=== PATIENT | female | born 1950 | race Caucasian/White ===

== ENCOUNTER 2016-10-19 13:04 | Day surgery (SDC) | payer OTHER ==
[~2016-10-19] VITALS: Ht 160 cm; Wt 58.5 kg
[~2016-10-19 13:04] MED LIST: ADULT LOW DOSE81 M1 PO; AMIODARONE HCL200 MG PO; DOXYCYCLINE HY100 MG PO; ELIQUIS5 MG PO; ESSENTIAL DAIL1 EACH PO; FISH OIL 1,0001 EAC7 PO; HYCODAN SYRUP480 ML PO; LASIX80 MG PO; VITAMIN D31000 UNIT PO
== END 2016-10-19 15:10 | disposition home or self-care (01) ==
LOC: CATH 13:04
PROC: 5A2204Z Restoration of Cardiac Rhythm, Single (ICD-10-PCS; principal; 2016-10-19)
DX: I48.91 Unspecified atrial fibrillation (principal); Z95.2 Presence of prosthetic heart valve; Z79.01 Long term (current) use of anticoagulants
CPT/HCPCS: 93005

== ENCOUNTER → 2017-06-22 | Outpatient (CLI) | payer OTHER | END | disposition home or self-care (01) | LOC: AMB 07:52 | DX: I78.1 Nevus, non-neoplastic (principal) ==